=== PATIENT | female | born 1970 | race African-American/Black ===

== ENCOUNTER 2024-10-13 22:51 | Emergency (ER) | payer OTHER ==
[~2024-10-13] VITALS: Ht 172.7 cm; Wt 73.6 kg
[2024-10-13 23:01] VITALS: O2SAT 99
[2024-10-13 23:05] VITALS: BP 139/88; PULSE 88; RESP 20; TEMP 36.7; O2SAT 99
[2024-10-13 23:49] LABS: BASOPHILS % 0.6 % (0.0-2.0); EOSINOPHILS % 2.2 % (0.0-5.0); HEMATOCRIT. 37.2 % (36.0-48.0); HEMOGLOBIN. 11.9 g/dL (12.0-16.0); LYMPHOCYTES % 40.9 % (20.0-50.0); MEAN CORPUSCULAR HEMOGLOBIN 27.6 pg (28.0-32.0); MEAN CORPUSCULAR HGB CONC 31.9 g/dL (31.0-37.0); MEAN CORPUSCULAR VOLUME 86.4 fL (81.0-99.0); MEAN PLATELET VOLUME 9.5 fl (7.4-10.4); MONOCYTES % 7.3 % (2.0-8.0); PLATELET 183 x1000/uL (130-400); RED CELL DISTRIBUTION WIDTH 14.2 % (11.6-14.6); WHITE BLOOD COUNT 4.3 x1000/uL (4.5-11.0)
[2024-10-13 23:53] LABS: CARBON DIOXIDE 32 mEq/L (21-32); CHLORIDE 105 mEq/L (98-107); POTASSIUM 3.8 mEq/L (3.5-5.1); SODIUM 141 mEq/L (136-145)
[2024-10-13 23:54] LABS: CALCIUM 9.9 mg/dL (8.7-10.4)
[2024-10-13 23:58] LABS: CREATININE 0.7 mg/dL (0.6-1.0); GLUCOSE 105 mg/dL (70-105)
[2024-10-13 23:59] LABS: UREA NITROGEN BLOOD 15 mg/dL (9-23)
[2024-10-14 00:12] LABS: TROPONIN I HIGH SENSITIVITY 9 ng/L (3.0-34)
[2024-10-14] MEDS: ACETAMINOPHEN 325MG TABLET PO ONE (03:30)
[2024-10-14] MEDS ORDERED: AMOX500T2 MT (03:45)
[2024-10-14] MEDS ORDERED: P20 MT (03:47)
[2024-10-14] MEDS ORDERED: BO1 TP (04:35)
[2024-10-14] MEDS ORDERED: NAPR-1176 MT (04:35)
[2024-10-14] MEDS ORDERED: COMP1EAC MC (04:36)
== END 2024-10-14 04:50 | disposition home or self-care (01) ==
LOC: ER 22:51
DX: S90.822A Blister (nonthermal), left foot, initial encounter (principal); R07.89 Other chest pain; I10 Essential (primary) hypertension; Z90.710 Acquired absence of both cervix and uterus; Z79.1 Long term (current) use of non-steroidal anti-inflammatories (NSAID); X58.XXXA Exposure to other specified factors, initial encounter; Y93.89 Activity, other specified; Y92.89 Other specified places as the place of occurrence of the external cause; Y99.8 Other external cause status
CPT/HCPCS: 36415; 71045; 80048; 83880; 84484; 85025; 93005; 99285